=== PATIENT | female | born 1975 | race Caucasian/White ===

== ENCOUNTER → 2017-01-14 | Outpatient (CLI) | payer BC ==
[2015-11-11 18:19] VITALS: BP 118/89
--- NOTE | 2017-01-15 09:38 | MG ---
HISTORY: Left breast lump Bilateral digital diagnostic mammography with CAD and left breast ultrasound. Comparison: Multiple priors dating back to September 13, 2013 FINDINGS: Mammogram: CC and MLO projections of the right and left breast were obtained. Heterogeneously dense fibroglandular tissue is seen to be present. No suspicious architectural distortion, mass or clust ered microcalcifications can be observed to suggest malignancy. However, in the region of the palpab le findings, there has been slight interval increase size and density of a partially obscured and pa rtially circumscribed nodule with a biopsy clip noted most compatible with a benign parenchymal cyst but for which targeted sonography is recommended given the interval change and presence of palpable findings. There are additional stable right breast nodules also compatible with benign cysts. No sk in thickening or nipple retraction is appreciated. No pathological lymphadenopathy can be identifi ed. Benign-appearing calcifications are noted within the right and left breast. Ultrasound: Multiple grayscale and color Doppler images of the left breast were obtained. At 5 o'helen ck in the region of interest, there is a 1.5 cm horizontally oriented macro lobulated but smoothly m arginated and well circumscribed hypoechoic nodule with posterior acoustical enhancement and periphe ral vascularity favored to represent a complex cyst with internal debris with additional adjacent mi crocysts noted. There is an equivocal solid component along the periphery with internal vascularity and shadowing measuring approximately 1.2 cm for which repeat tissue sampling is recommended. IMPRESSION: Interval enlargement of a complex cyst at 5 o'clock with an equivocal peripheral solid nodular component for which ultrasound-guided biopsy is recommended with attempt to target the more peripheral solid-appearing region. Aspiration of the cystic component is recommended as well given t he presence of recurrent palpable findings. ACR CATEGORY 4 - suspicious abnormality; biopsy should be considered. Diagnostic CAD was utilized and reviewed. * 0 (ZERO) - ASSESSMENT INCOMPLETE; ADDITIONAL IMAGING IS NEEDED. * 1/ (ONE) - NEGATIVE. * 2/II (TWO) - BENIGN FINDINGS. * 3/III (THREE) - PROBABLY BENIGN FINDING; SHORT INTERVAL FOLLOW-UP SUGGESTED. * 4/IV (FOUR) - SUSPICIOUS ABNORMALITY; BIOPSY SHOULD BE CONSIDERED. * 5/V (FIVE) - HIGHLY SUSPICIOUS OF MALIGNANCY; BIOPSY SHOULD BE PERFORMED. A NEGATIVE X-RAY REPORT SHOULD NOT DELAY BIOPSY IF A DOMINANT OR CLINICALLY SUSPICIOUS MASS IS PRESENT; 4 TO 8 PERCENT OF CANCERS ARE NOT IDENTIFIED BY X-RAY. A NEG ATIVE REPORT MAY REINFORCE THE CLINICAL IMPRESSION. ADENOSIS AND DENSE BREASTS MAY OBSCURE AN UNDER LYING NEOPLASM. Reported By:
== END ==
LOC: RAD 13:31
PROVIDERS: ATTEND Specialist
DX: N63 Unspecified lump in breast (principal)
CPT/HCPCS: 76642; 77066

== ENCOUNTER → 2017-01-22 | Outpatient (CLI) | payer BC ==
[2015-11-11 18:19] VITALS: BP 118/89
--- NOTE | 2017-01-22 13:39 | US ---
HISTORY: Left breast nodule Study: Ultrasound-guided breast biopsy Comparison: 01/14/2017 Technique: Multiple grayscale images of the left breast were obtained. Findings: Again noted within the left breast is a focal lesion previously noted and amenable to ultrasound-anay ded biopsy. Multiple images demonstrating a trocar device transversing the lesion are observed. Procedure: After the risks benefits and alternatives to the procedure were explained to the patient questions w ere answered and she agreed to proceed. Under direct ultrasound guidance the skin entry position wa s selected and marked. A time-out was taken. 1% lidocaine without epinephrine was utilized to anes thetize the skin and underlying soft tissues. Under direct ultrasound guidance the 13 gauge trocar device was advanced to the lesion without difficulty. 5 separate 14 gauge core samples were obtaine d without difficulty. IMPRESSION: Successful ultrasound-guided breast biopsy. Reported By:
== END | disposition home or self-care (01) | DRG 601 ==
LOC: RAD 09:46
PROVIDERS: ATTEND Specialist
PROC: BH41ZZZ Ultrasonography of Left Breast (ICD-10-PCS; principal; 2017-01-22)
PROC: 0HBU3ZX Excision of Left Breast, Percutaneous Approach, Diagnostic (ICD-10-PCS; principal; 2017-01-22)
DX: R92.8 Other abnormal and inconclusive findings on diagnostic imaging of breast (principal); N63 Unspecified lump in breast
CPT/HCPCS: 19083